=== PATIENT | female | born 1950 | race Caucasian/White ===

== ENCOUNTER → 2021-07-20 08:04 | Outpatient (BNVA) | payer MEDICARE, OTHER, SELFPAY | PROVIDERS: Visit Provider Nurse Practitioner Family | DX: M50.30 Other cervical disc degeneration, unspecified cervical region (principal); M54.12 Radiculopathy, cervical region; M54.81 Occipital neuralgia | CPT/HCPCS: 99202 ==

== ENCOUNTER 2021-08-08 08:42 | Outpatient (REF) | payer MEDICARE, OTHER, SELFPAY ==
--- NOTE | ~2021-08-08 | MR_ITS ---
EXAMINATION: MR CERVICAL SPINE WITHOUT CONTRAST CLINICAL INFORMATION: Radiculopathy, cervical region. COMPARISON: None available. TECHNIQUE: MRI of the cervical spine was performed using routine sequences without contrast. FINDINGS: The cervical vertebral bodies maintain normal heights. There is mild retrolisthesis of C5 on C6 and mild anterolisthesis of C7 on T1. Severe disc height loss is seen at C4-C5 and C5-C6 with additional mild to moderate disc height loss also demonstrated. The cervical cord signal appears normal. The imaged portions of the intracranial contents and extraspinal soft tissues appear normal. SPINAL LEVELS: C2-C3: No posterior disc abnormality. Severe left and moderate right facet arthropathy. No spinal canal or neural foraminal stenosis. C3-C4: No posterior disc abnormality. Uncovertebral hypertrophy with severe facet arthropathy resulting in moderate right neural foraminal stenosis. No spinal canal stenosis. C4-C5: Disc osteophyte complex with uncovertebral hypertrophy and moderate to severe facet arthropathy resulting in severe bilateral neural foraminal stenosis and mild spinal canal stenosis. C5-C6: Disc osteophyte complex with uncovertebral hypertrophy and mild facet arthropathy resulting in mild to moderate spinal canal stenosis and severe bilateral neural foraminal stenosis. C6-C7: Disc osteophyte complex with left more than right uncovertebral hypertrophy and mild facet arthropathy resulting in severe bilateral neural foraminal stenosis and mild spinal canal stenosis. C7-T1: No posterior disc abnormality. Moderate facet arthropathy. No spinal canal or neural foraminal stenosis. MR/MR cervical spine wo con IMPRESSION: Multilevel degenerative spondylosis resulting in varying degrees of spinal canal or neural foraminal stenosis. No cord signal abnormality. Spinal canal stenosis appears mild to moderate at C5-C6 and less advanced at other levels. Neural foraminal stenosis is moderate on the right at C3-C4 and severe bilaterally at C4-C5, C5-C6, and C6-C7.
== END 2021-08-08 08:43 | disposition home or self-care (01) ==
LOC: HO.MRI 08:42
PROVIDERS: PCP Internal Medicine; Visit Provider Nurse Practitioner Family
DX: M54.12 Radiculopathy, cervical region (principal); M50.30 Other cervical disc degeneration, unspecified cervical region
CPT/HCPCS: 72141

== ENCOUNTER → 2021-08-23 09:47 | Outpatient (BNVA) | payer MEDICARE, OTHER, SELFPAY | PROVIDERS: Visit Provider Nurse Practitioner Family | DX: M50.30 Other cervical disc degeneration, unspecified cervical region (principal); M54.81 Occipital neuralgia; M47.812 Spondylosis without myelopathy or radiculopathy, cervical region | CPT/HCPCS: 99212 ==

== ENCOUNTER → 2021-09-02 08:05 | Outpatient (BNVA) | payer MEDICARE, OTHER, SELFPAY | PROVIDERS: Visit Provider Internal Medicine | DX: M54.81 Occipital neuralgia (principal) | CPT/HCPCS: 64405; 64450; J3300 ==

== ENCOUNTER 2021-11-16 07:20 | Outpatient (REF) | payer MEDICARE, OTHER, SELFPAY ==
--- NOTE | ~2021-11-16 | FL_ITS ---
EXAMINATION: XR FLUOROSCOPY WITH IMAGES CLINICAL INFORMATION: Cervical disc degeneration COMPARISON: MRI of 08/08/2021 TECHNIQUE: Fluoroscopy performed by Dr. Gabriel Kaye. Fluoroscopy time: 0.2 minutes DAP: 0.137 Gycm2 Images: 2 FINDINGS: AP and lateral views of the cervical spine taken in the operating room with C-arm demonstrates 3 needles adjacent to lamina of C3, C4, and C5 on the right. FL/FL guidance in treatment room IMPRESSION: Intraoperative fluoroscopy for pain management procedure.
== END 2021-11-16 07:21 | disposition home or self-care (01) ==
LOC: HO.RADIR 07:20
PROVIDERS: Visit Provider Internal Medicine
DX: M47.812 Spondylosis without myelopathy or radiculopathy, cervical region (principal); M50.30 Other cervical disc degeneration, unspecified cervical region
CPT/HCPCS: 64490; 64491; 64492; J2795; Q9967

== ENCOUNTER → 2021-11-18 11:52 | Outpatient (BNVA) | payer MEDICARE, OTHER, SELFPAY | PROVIDERS: Visit Provider Nurse Practitioner Family | DX: M50.30 Other cervical disc degeneration, unspecified cervical region (principal); M54.81 Occipital neuralgia; M47.812 Spondylosis without myelopathy or radiculopathy, cervical region | CPT/HCPCS: Q3014 ==

== ENCOUNTER 2022-01-18 06:08 | Outpatient (REF) | payer MEDICARE, OTHER, SELFPAY ==
--- NOTE | ~2022-01-18 | FL_ITS ---
EXAMINATION: XR FLUOROSCOPY WITH IMAGES CLINICAL INFORMATION: Spondylosis without myelopathy or radiculopathy. Images: 3 Fluoroscopy performed by: Jesusita Fluoroscopy time: 0.2 minutes Cumulative Dose: 1.46 mGy DAP: 0.198 Gy-cm2 FINDINGS: There are needles positioned adjacent to the right C2, C3 and C4 right lateral lamina with soft tissue contrast opacification. The visualized vertebral heights, alignment and disc heights are normal. FL/FL guidance in treatment room IMPRESSION: Fluoroscopy guidance was provided to the referrer for pain management.
== END 2022-01-18 06:09 | disposition home or self-care (01) ==
LOC: HO.RADIR 06:08
PROVIDERS: Visit Provider Internal Medicine
DX: M47.812 Spondylosis without myelopathy or radiculopathy, cervical region (principal); M50.30 Other cervical disc degeneration, unspecified cervical region
CPT/HCPCS: 64490; 64491; 64492; Q9967

== ENCOUNTER → 2022-01-20 08:18 | Outpatient (BNVA) | payer MEDICARE, OTHER, SELFPAY | PROVIDERS: Visit Provider Internal Medicine | DX: M47.812 Spondylosis without myelopathy or radiculopathy, cervical region (principal) | CPT/HCPCS: Q3014 ==

== ENCOUNTER 2022-03-15 07:23 | Day surgery (SDC) | payer MEDICARE, OTHER, SELFPAY ==
--- NOTE | ~2022-03-15 | FL_ITS ---
EXAMINATION: XR FLUOROSCOPY WITH IMAGES CLINICAL INFORMATION: M47.812 - Spondylosis without myelopathy or radiculopathy, cervical region COMPARISON: MR cervical spine 08/08/2021 TECHNIQUE: Fluoroscopy performed by Dr. Gabriel Kaye. Fluoroscopy time: 0.6 minutes. Cumulative Dose: 2.78 mGy. DAP: 0.257 Gycm2. Images: 2. FINDINGS: There are spinal needles overlying the right lateral masses cervical spine approximately C3, C4, and C5. There are degenerative disc changes lower cervical spine with disc narrowing and anterior vertebral spurring C4-C7. FL/FL guidance in OR IMPRESSION: Fluoroscopy for pain management procedure.
[2022-03-15 07:34] VITALS: BMI 20.8
[2022-03-15 07:51] VITALS: BP 120/66; PULSE 81; RESP 16; TEMP 36.5; O2SAT 98
[2022-03-15 09:36] VITALS: PULSE 73; RESP 14; TEMP 36.9; O2SAT 96
--- NOTE | 2022-03-15 13:27 | MHC.SHP ---
Pre-Procedural Eval Section A Date of Service: 03/15/22 The patient is an INPATIENT: No Changes since office visit: Yes Patient answered all questions The History & Physical has been completed within 30 days and I have reviewed it.: No Section B Chief Complaint: Spondylosis without myelopathy or radiculopathy, Relevant Family History (Specify if Yes): No Relevant Social History: None Present Medications: see Short Stay Collaborative assessment Medical History: No relevant PMH History of Previous Operations: No relevant previous surgery Allergies: Allergies Allergy/AdvReac Type Severity Reaction Status Date / Time nickel Allergy Mild Hives Verified 01/18/22 07:21 Review of Systems Sugical H&P ROS: Negative: Constitution, Cardiovascular and Respiratory Exam Surgical H&P Exam: Normal: HEENT, Normal: Heart and Normal: Lungs Plan Diagnosis/Plan: Unchanged I have reviewed the history and physical and performed a pertinent physical examination on my patient. No changes have occurred unless specified.
--- NOTE | 2022-03-15 13:27 | PM.OP ---
Brief Operative Note Date of Service: 03/15/22 Pre-op diagnosis: Cervical spondylosis Post-op diagnosis: same Procedure: Radiofrequency ablation of the medial branches at C3, C4, C5 Surgeon: Gabriel Kaye MD Anesthesia: local Was an Security System Installer used for this Procedure?: No Estimated blood loss (mL): 1 Pathology: none sent Condition: stable Disposition: same day
--- NOTE | 2022-03-15 13:28 | W.PM.OPN ---
Operative Note Operative Note Date of Service: 03/15/22 Narrative: Radiofrequency lesioning cervical medial branch nerves, Right C3, C4 and C5 After obtaining written consent, pre-procedure blood pressure and heart rate were stable and recorded in the nursing record. The patient was placed in the prone position. The?cervical?area was prepped with chloraprep and draped in sterile fashion. The skin over the target for each medial branch nerve was anesthetized with 0.75% lidocaine. An 18 gauge radiofrequency cannula was advanced to each target site under fluoroscopic guidance. No paresthesias were elicited with needle placement and aspiration was negative for heme and CSF. Impedences were verified under 600 ohms. Sensory testing (50 Hz) and then motor testing (2 Hz) confirmed needle placement at each site within the appropriate voltage thresholds. Each site was injected with 1 ml 2% preservative-free lidocaine. Radiofrequency lesioning was performed for 90 seconds at 80 deg Celcius. Each site was then injected with 0.5% ropivacaine 0.5 mL. The needles were removed, skin cleansed and a sterile bandage was applied. The patient tolerated the procedure well and no complications were encountered. Following the procedure the patient's vital signs were stable. The patient was discharged home in good condition with post-procedural instructions. Time Out: Immediately prior to the procedure, the following was verbally confirmed that there is a signed consent form and that the correct patient, planned procedure, site and side are consistent with documentation and that necessary equipment and/or blood products are available prior to the start of the case. Complications: none EBL: <5 cc
== END 2022-03-15 10:20 | disposition home or self-care (01) ==
PROVIDERS: PCP Internal Medicine; Visit Provider Internal Medicine
PROC: (CPT 64633; principal; 2022-03-15 08:00)
DX: M47.812 Spondylosis without myelopathy or radiculopathy, cervical region (principal); Z86.012 Personal history of benign carcinoid tumor; Z79.899 Other long term (current) drug therapy; Z98.82 Breast implant status; Z91.09 Other allergy status, other than to drugs and biological substances
CPT/HCPCS: 64633; 64634; J2795; Q9965

== ENCOUNTER → 2022-04-10 08:49 | Outpatient (BNVA) | payer MEDICARE, OTHER, SELFPAY | PROVIDERS: PCP Internal Medicine; Visit Provider Internal Medicine | DX: M47.812 Spondylosis without myelopathy or radiculopathy, cervical region (principal) | CPT/HCPCS: 99212 ==

== ENCOUNTER 2023-04-22 10:44 | Emergency (ER) | payer MEDICARE, OTHER, SELFPAY ==
--- NOTE | ~2023-04-22 | XR_ITS ---
EXAMINATION: XR KNEE, RIGHT CLINICAL INFORMATION: Reason for Exam fall, pain COMPARISON: None TECHNIQUE: 4 views of the knee FINDINGS: Lucency and depression in the lateral tibial plateau may reflect sequela of age-indeterminate fracture, recommend correlation with point tenderness and if unclear clinical acuity a CT could be obtained for further evaluation. Mild osteoarthritis with osteophytes in the lateral tibiofemoral compartment. No joint effusion. Soft tissues are unremarkable that appreciable soft tissue swelling. XR/XR knee RT 3V IMPRESSION: * Lucency and depression in the lateral tibial plateau may reflect sequela of age-indeterminate fracture, recommend correlation with point tenderness and if unclear clinical acuity a CT could be obtained for further evaluation. No joint effusion or soft tissue swelling. * Mild osteoarthritis with osteophytes of the knee.
--- NOTE | ~2023-04-22 | CT_ITS ---
EXAMINATION: CT KNEE WITHOUT CONTRAST, RIGHT CLINICAL INFORMATION: Tibial plateau fracture. COMPARISON: 04/22/2023. TECHNIQUE: Multidetector volumetric imaging was obtained through the right knee without contrast. Multiplanar reformatted images in coronal and sagittal orientations were submitted. This CT examination was performed using dose optimization techniques as appropriate, variously including the following: *Automated exposure control *Adjustment of mA and/or kV according to patient size (this includes techniques or standardized protocols for targeted exams where dose is matched to indication/reason for exam; i.e. extremities or head) *Use of iterative reconstruction technique DLP: 207 mGy-cm FINDINGS: There is an oblique sagittal fracture through the lateral tibial plateau articular surface with minimal lateral displacement of the lateral fracture fragment by 1-2 mm. Articular cortical step off measures 1 mm. No significant articular cortical depression. Medial tibial plateau and tibial spines are intact. Note fractures of the distal femur or patella. Proximal fibula is intact. Mild joint space narrowing is present at the medial and lateral compartments. Small marginal osteophytes in all 3 compartments. Large lipohemarthrosis. No Braun's cyst. Quadriceps and patellar tendons are intact. Musculature is unremarkable. CT/CT knee RT wo IV con IMPRESSION: Minimally displaced, acute, sagittal split fracture of the lateral tibial plateau (Schatzker type I). Mild tricompartmental osteoarthritis. Lipohemarthrosis.
[2023-04-22 10:51] VITALS: BP 130/65; BP 137/42; PULSE 58; PULSE 62; RESP 16; TEMP 36.8; O2SAT 100; O2SAT 95; BMI 23.0
--- NOTE | 2023-04-22 11:00 | ED.FALL ---
HPI - Fall General Chief Complaint: Fall Stated Complaint: FALL R KNEE AND LOWER LEG PAIN Time Seen by Provider: 04/22/23 10:48 Source: patient and EMS Mode of arrival: EMS Limitations: no limitations History of Present Illness HPI Narrative: 72-year-old female with a history of high cholesterol presents to the ER after a fall. Patient reports that she was at the dog park with her dog when her dog got very excited and ran into her causing her to fall. Patient reports she landed on the right knee. She did not hit her head or lose consciousness. She is not on AC therapy. Patient reports after she fell hitting her knee she had quite a bit of pain and felt dizzy and nauseous. She did receive 4 mg of Zofran prior to arrival from EMS. She tells me that her dizziness and nausea is resolved. She is still having pain in her right knee. She denies headache, neck pain, back pain, chest pain, abdominal pain, vision changes, vomiting. Related Data Home Medications Medication Instructions Recorded Confirmed calcium carbonate 600 mg-vitamin cap PO 07/20/21 04/10/22 D3 12.5 mcg (500 unit) capsule (Calcium 600 with Vitamin D3) guselkumab 100 mg/mL subcutaneous mg subcut 07/20/21 04/10/22 syringe (Tremfya) ibuprofen 800 mg tablet 800 mg PO Q8H PRN pain 07/20/21 04/10/22 Previous Rx's Medication Instructions Recorded tizanidine 2 mg tablet 1 mg (1/2 x 2 mg) PO BEDTIME PRN 04/10/22 muscle spasm #30 tabs ibuprofen 600 mg tablet 600 mg PO Q8H PRN pain #20 tabs 04/22/23 oxycodone 5 mg tablet 5 mg PO Q8H PRN pain #8 tabs 04/22/23 Allergies Allergy/AdvReac Type Severity Reaction Status Date / Time nickel Allergy Mild Hives Verified 04/22/23 11:01 Review of Systems Review of Systems: Yes all other systems are reviewed and are negative Constitutional: Constitutional: Reports no additional constitutional complaints, Denies body ache(s), Denies chills, Denies fever(s), Denies headache(s) and Denies weakness Eyes: Eyes: Reports no additional eye complaints and Denies change in vision ENT: Reports system reviewed and no additional complaints, except as documented, Denies dizziness, Denies headache(s), Denies nasal congestion, Denies nasal discharge and Denies neck pain Cardiovascular: Cardiovascular: Reports no additional cardiovascular complaints, Denies chest pain, Denies leg edema and Denies dyspnea Respiratory: Respiratory: Reports no additional respiratory complaints, Denies cough and Denies dyspnea Gastrointestinal: Gastrointestinal: Reports no additional gastrointestinal complaints, Denies abdominal pain, Denies diarrhea, Denies nausea and Denies vomiting Genitourinary: Genitourinary: Reports no additional female genitourinary complaints and Denies urinary incontinence Musculoskeletal: Musculoskeletal: Reports no additional musculoskeletal complaints, Denies back pain, Reports arthralgias, Denies joint swelling, Denies limited range of motion, Denies neck pain, Denies numbness and Denies tingling Integumentary/Breasts: Skin/Breast: Reports system reviewed and no additional complaints, except as docu and Denies rash Neurologic: Reports system reviewed and no additional complaints, except as documented, Denies Abnormal speech present, Denies dizziness, Denies headache(s), Denies numbness, Denies tingling and Denies weakness PMFSH Past Medical History Attestation statement: The following information was validated with the patient. Source: old records reviewed and nursing notes reviewed Medical History Benign carcinoid tumor of sigmoid colon Surgical History H/O bilateral breast implants Social History Social History Patient Tobacco Use Status: Never used Tobacco Smoked in Last 30 Days: No Use of substances other than those prescribed or required for medical reasons: No Any prior treatment program specific to substance use: No Advance Directives: Yes Advance Directives Information Provided: Yes Advance Directives on File: No Physical Exam Vital Signs: Vital Signs: Last Vital Signs Temp 98.2 F 04/22/23 10:51 Pulse 78 04/22/23 13:08 Resp 18 04/22/23 13:08 BP 139/58 L 04/22/23 13:08 Pulse Ox 98 04/22/23 13:08 O2 Del Method Room Air 04/22/23 13:08 BMI result Body Mass Index 23.0 Const: General: cooperative, healthy appearing, comfortable and no acute distress Orientation/consciousness: patient oriented x3 Limitations: no limitations HEENT: Head: Yes normal to inspection, No Bryan's sign and No raccoon eyes Ears: hearing grossly normal bilaterally and TM's normal bilaterally General nose exam: Normal external nose present Face and sinus: Yes normal facial exam Mouth: Normal oral and palatal mucosa present Throat: Yes posterior oropharynx normal Eyes: General: appearance normal, both eyes and all related structures Pupils: Equal, round and reactive pupils present Neck: Other: There is no cervical midline tenderness on exam. Neck: Yes normal visual inspection, Yes full ROM and Yes no lymphadenopathy Chest: Chest palpation & inspection: normal inspection of the chest Resp: Effort & Inspection: normal respiratory effort Auscultation: clear to auscultation bilaterally Cardio: Rate: regular rate Rhythm: regular rhythm Peripheral pulses: Peripheral pulses 2+ throughout GI: Inspection: Yes normal to inspection Palpation (GI): Soft to palpation and nontender Auscultation: normal bowel sounds Back/Spine/Pelvis: Thoracic/Lumbar Spine: thoracic and lumbar spine normal to inspection Skin: General skin exam: no rashes or lesions noted Neuro: General: patient oriented x3, moves all extremities, no focal motor deficits, normal sensation to monofilament and Unable to assess gait Cranial nerves: Yes CN's II-XII intact bilaterally, Yes Equal, round and reactive pupils present, Yes Bilaterally intact EOM present, Yes Nystagmus not present, Yes Normal facial strength present and Yes Midline tongue present Cognition (Neuro): normal cognition Speech: No Abnormal speech present Gait exam (Neuro): Unable to assess gait Motor exam (neuro): 5/5 motor strength present throughout Sensory Exam: Normal double simultaneous stimulation for sensation Extrem: Other: Knee is held in flexion. There is pain with extension of the knee. There is tenderness on palpation over the anterior knee and proximal tibia. There is no swelling or deformity noted. There are normal DP and PT pulses distally. Normal sensation distally. Normal active and passive range of motion of the distal joint General: Yes normal to inspection Course Course Course Narrative: Reviewed findings of the CT scan with the patient and her family. Patient was placed in a knee immobilizer and given crutches with teaching by nursing staff. I will discharge her home with recommendations to follow-up with orthopedics. Reviewed worrisome signs and symptoms of when to return to the emergency room. Comfortable plan for discharge home. Medications Administered Discontinued Medications Generic Name Dose Route Start Last Admin Trade Name Morena PRN Reason Stop Dose Admin Acetaminophen 975 mg 04/22/23 10:59 04/22/23 11:07 Acetaminophen 325 Mg Tablet PO 04/22/23 11:00 975 mg ONCE ONE Administration Ketorolac Tromethamine 15 mg 04/22/23 12:42 04/22/23 13:01 Ketorolac Tromethamine 15 Mg/Ml Vial IVPUSH 04/22/23 12:43 15 mg ONCE ONE Administration Procedures Orthopedic Splinting/Casting Injury #1: Side: right Lower Extremity Injury Location: knee Lower Extremity Immobilizer: knee immobilizer Other Orthopedic Equipment: crutches Medical Decision Making Medical Decision Making MDM Narrative: 72-year-old female with a history of high cholesterol presents to the ER after a fall.? Patient reports that she was at the dog park with her dog when her dog got very excited and ran into her causing her to fall.? Patient reports she landed on the right knee.? She did not hit her head or lose consciousness.? She is not on AC therapy.? Patient reports after she fell hitting her knee she had quite a bit of pain and felt dizzy and nauseous.? She did receive 4 mg of Zofran prior to arrival from EMS.? She tells me that her dizziness and nausea is resolved.? She is still having pain in her right knee.? She denies headache, neck pain, back pain, chest pain, abdominal pain, vision changes, vomiting. Knee is held in flexion.? There is pain with extension of the knee.? There is tenderness on palpation over the anterior knee and proximal tibia.? There is no swelling or deformity noted.? There are normal DP and PT pulses distally.? Normal sensation distally.? Normal active and passive range of motion of the distal joint. Normal neuro exam. Patient denies any head strike or loss of consciousness. I do not feel that she needs the CT of her head or cervical spine. We will check x-rays of the right knee and provide analgesia Differential Diagnosis Differential Diagnoses: The differential diagnosis associated with the presentation includes Fracture, contusion, sprain, strain, dislocation Low concern for vascular injury Admission/Observation Consideration of admission/observation: Escalation of care including admission/observation considered See course of care Consult Healthcare Provider Management of the patient was discussed with: Insulation Cutter And Former X-ray of the right knee shows a tibial plateau fracture. We discussed the case with Orthopedics Renetta SANCHEZ. She is requesting that the patient have a CT scan while she is in the emergency department of her knee. I did review the CT findings with the orthopedic department. They recommended a knee mobilizer and not weight-bearing with follow-up outpatient Independent Interpretation I performed an independent interpretation of an: Plain X-Ray Interpretation: I independently reviewed the x-ray and CT knee and agree with Radiology report Radiology Impression Discussion of test interpretation with radiology: I have reviewed the radiologist's reading. Radiologist Impression: [address] [address] XRay Report Signed Patient: Sarah Geller MR#: [id number] : 1950 Acct:[id number] Age/Sex: 72 / F ADM Date: 04/22/23 Loc: .ED Attending Dr: Ordering Physician: Joan Miles NP Date of Service: 04/22/23 Procedure(s): XR knee RT 3V Accession Number(s): [id number] cc: Zo Isabel MD; Joan Miles NP~ EXAMINATION: XR KNEE, RIGHT CLINICAL INFORMATION: Reason for Exam fall, pain COMPARISON: None TECHNIQUE: 4 views of the knee FINDINGS: Lucency and depression in the lateral tibial plateau may reflect sequela of age-indeterminate fracture, recommend correlation with point tenderness and if unclear clinical acuity a CT could be obtained for further evaluation. Mild osteoarthritis with osteophytes in the lateral tibiofemoral compartment. No joint effusion. Soft tissues are unremarkable that appreciable soft tissue swelling. XR/XR knee RT 3V IMPRESSION: * Lucency and depression in the lateral tibial plateau may reflect sequela of age-indeterminate fracture, recommend correlation with point tenderness and if unclear clinical acuity a CT could be obtained for further evaluation. No joint effusion or soft tissue swelling. * Mild osteoarthritis with osteophytes of the knee. [address] [address] [address] Scan Report Signed Patient: Sarah Geller MR#: [id number] : 1950 Acct:[id number] Age/Sex: 72 / F ADM Date: 04/22/23 Loc: HO.ED Attending Dr: Ordering Physician: Joan Miles NP Date of Service: 04/22/23 Procedure(s): CT knee RT wo IV con Accession Number(s): [id number] cc: Zo Isbael MD; Joan Miles NP~ EXAMINATION: CT KNEE WITHOUT CONTRAST, RIGHT CLINICAL INFORMATION: Tibial plateau fracture. COMPARISON: 04/22/2023. TECHNIQUE: Multidetector volumetric imaging was obtained through the right knee without contrast. Multiplanar reformatted images in coronal and sagittal orientations were submitted. This CT examination was performed using dose optimization techniques as appropriate, variously including the following: *Automated exposure control *Adjustment of mA and/or kV according to patient size (this includes techniques or standardized protocols for targeted exams where dose is matched to indication/reason for exam; i.e. extremities or head) *Use of iterative reconstruction technique DLP: 207 mGy-cm FINDINGS: There is an oblique sagittal fracture through the lateral tibial plateau articular surface with minimal lateral displacement of the lateral fracture fragment by 1-2 mm. Articular cortical step off measures 1 mm. No significant articular cortical depression. Medial tibial plateau and tibial spines are intact. Note fractures of the distal femur or patella. Proximal fibula is intact. Mild joint space narrowing is present at the medial and lateral compartments. Small marginal osteophytes in all 3 compartments. Large lipohemarthrosis. No Braun's cyst. Quadriceps and patellar tendons are intact. Musculature is unremarkable. CT/CT knee RT wo IV con IMPRESSION: Minimally displaced, acute, sagittal split fracture of the lateral tibial plateau (Schatzker type I). Mild tricompartmental osteoarthritis. Lipohemarthrosis. Independent Historian Clinical information obtained from an independent historian. History obtained from or confirmed by: EMS Tests considered The following testing was considered but not selected: Lower concern for vascular injury requiring advanced imaging Prescription Management I considered prescription management with: Pain Medication Discharge Plan Discharge Clinical Impression: Fracture, tibial plateau Patient Disposition: Home, Self-Care Instructions: Leg Fracture (ED) Additional Instructions: Please use the knee immobilizer with movement. You need to be strict nonweightbearing with crutches. Ice the knee, elevate the knee Please call orthopedics to follow-up Prescriptions: New ibuprofen 600 mg tablet 600 mg PO Q8H PRN (Reason: pain) Qty: 20 0RF oxycodone 5 mg tablet 5 mg PO Q8H PRN (Reason: pain) Qty: 8 0RF Rx Instructions: Partial Fill upon patient request. No Action Tremfya 100 mg/mL syringe subcut ibuprofen 800 mg tablet 800 mg PO Q8H PRN (Reason: pain) calcium carbonate-vitamin D3 [Calcium 600 with Vitamin D3] 600 mg-12.5 mcg (500 unit) capsule PO tizanidine 2 mg tablet 1 mg PO BEDTIME PRN (Reason: muscle spasm) Qty: 30 0RF [place]: [facility] [place] [facility] [place]Provider Group] - 5 days
[2023-04-22] MEDS: Acetaminophen 325 MG TABLET 975 MG PO (11:07)
[2023-04-22 11:08] VITALS: BP 125/65; BP 130/65; PULSE 58; PULSE 68; RESP 16; O2SAT 100; O2SAT 98
--- NOTE | 2023-04-22 11:22 | PC.NURSE ---
Pt states she was out walking dog at [employer] when dog ran into me at full speed , causing pt to sustain fall. Pt fell on her right knee in which she felt an immediate crack upon landing. Pt does confirm she hit her head and is not on any anticoagulants. Pt states she felt dizzy and nauseated after hitting her head. Pt denies LOC. Pt is A+0 x's 3 with no neuro deficits. Provider assessed at bedside and placed orders for imaging and pain relief. Care ongoing.
--- NOTE | 2023-04-22 11:29 | PC.NURSE ---
Pt transported to Xray
--- NOTE | 2023-04-22 11:35 | PC.NURSE ---
Pt returned from xray
[2023-04-22] MEDS: Ketorolac Tromethamine 15 MG/ML VIAL IVPUSH (13:01)
[2023-04-22 13:08] VITALS: BP 139/58; PULSE 78; RESP 18; O2SAT 98
--- NOTE | 2023-04-22 13:33 | PC.NURSE ---
returned from ct
--- NOTE | 2023-04-22 14:18 | PC.NURSE ---
Assisted pt w/bedpan; pt nonambulatory at this time- secondary to fracture in RLE.
== END 2023-04-22 15:08 | disposition home or self-care (01) ==
PROVIDERS: Emergency Provider Emergency Medicine Emergency Medical Services; PCP Internal Medicine
DX: S82.141A Displaced bicondylar fracture of right tibia, initial encounter for closed fracture (principal); W01.0XXA Fall on same level from slipping, tripping and stumbling without subsequent striking against object, initial encounter; Y93.89 Activity, other specified; Y92.830 Public park as the place of occurrence of the external cause; Y99.9 Unspecified external cause status
CPT/HCPCS: 73562; 73700; 96374; 99284; J1885

== ENCOUNTER 2023-04-23 11:15 | Outpatient (AMB) | payer MEDICARE, OTHER, SELFPAY ==
--- NOTE | 2023-04-23 11:22 | MHC.OFFVIS ---
Intake Vital Signs 04/23/23 11:28 Height 5 ft 2 in Weight 125 lb BMI 22.9 Intake Visit Reasons: fc- Rt knee tib plateau fx Intake Note: Sarah garcía 72 year old female presents today for an ER follow up of right knee injury, DOI 04/22/23. Patient reports while she was at the dog park, her dog ran into her at full speed causing her to fall onto her right knee. Presented to [facility] [place] [place] ED that same day where xrays were taken and placed in a knee immobilizer. Currently her pain comes with any type of movement in her right leg, at rest no pain. At night she feels numbness in her robbins area. Finds relief with Advil. Allergies nickel Allergy (Mild, Verified 04/23/23 11:31) Hives HPI fc- Rt knee tib plateau fx HPI Details 72-year-old female who presents to the office today for an ER follow-up of right knee injury s/p fall on her right knee when her dog ran into her at full speed at the [employer], 04/22/23. She was seen at ED the same day where x-rays were performed and she was placed in a knee immobilizer. She currently states she has pain in her right knee which comes with any movement of her leg. She also c/o numbness in her robbins area at night. She denies pain while at rest. She finds relief with Advil. [facility] Medical History Benign carcinoid tumor of sigmoid colon Surgical History H/O bilateral breast implants Social History Patient Tobacco Use Status: Never used Tobacco Current occupational status: unemployed Review of Systems Const All systems reviewed & are unremarkable except as noted in HPI and below Physical Exam Vital Signs: BMI result Body Mass Index 22.9 Const General: cooperative and no acute distress Orientation/consciousness: patient oriented x3 Resp Effort & Inspection: normal respiratory effort and able to speak in complete sentences Cardio Peripheral pulses: Peripheral pulses 2+ throughout Neuro General: patient oriented x3 Extrem Other: Right knee: Normal to inspection. She has a trace joint effusion. ROM is 0-90 degrees. Calf supple, nontender. Tenderness over the lateral tibial plateau. Results Reviewed Results Reviewed: CT scan IMPRESSION: Minimally displaced, acute, sagittal split fracture of the lateral tibial plateau (Schatzker type I). Mild tricompartmental osteoarthritis. Lipohemarthrosis. Assessment & Plan Assessment & Plan (1) Tibial plateau fracture, left: Code(s): S82.142A - Displaced bicondylar fracture of left tibia, initial encounter for closed fracture Qualifiers: Encounter type: initial encounter Fracture type: closed Qualified Code(s): S82.142A - Displaced bicondylar fracture of left tibia, initial encounter for closed fracture Plan She was placed in a hinge knee brace. She can work on ROM but she should remain non weight bearing. I did show her some ROM and quad exercises techniques while in the office. I did explain that healing usually takes around 6-8 weeks on x-rays and I will see her back at that time with new x-rays. Medications: New ibuprofen 800 mg PO Q8H 30 days PRN 90 tabs 3RF pain S52.209D - Unspecified fracture of shaft of unspecified ulna, subsequent encounter for closed fracture with routine healing Refilled ibuprofen 600 mg PO Q8H PRN 20 tabs 0RF pain Patient Instructions: Scribed for John Cleary PA-C, by Robert Quinones emergency medical service coordinator, on 04/23/2023 at 11:15 AM EST. IJohn PA-C, have personally reviewed and agree with the information entered by the scribe. Coding Level of Care Code New Pt Level 3 (73064) Diagnoses Closed fracture of left tibial plateau, initial encounter S82.142A Encounter type: initial encounter Fracture type: closed
[2023-04-23 11:28] VITALS: BMI 22.9
== END 2023-04-23 12:00 | disposition home or self-care (01) ==
PROVIDERS: PCP Internal Medicine; Visit Provider Physician Assistant
DX: S82.142A Displaced bicondylar fracture of left tibia, initial encounter for closed fracture (principal); W19.XXXA Unspecified fall, initial encounter
CPT/HCPCS: 99203

== ENCOUNTER → 2023-04-23 11:15 | Outpatient (BNVA) | payer MEDICARE, OTHER, SELFPAY | PROVIDERS: PCP Internal Medicine; Visit Provider Physician Assistant | DX: S82.141A Displaced bicondylar fracture of right tibia, initial encounter for closed fracture (principal) | CPT/HCPCS: 99202 ==

== ENCOUNTER 2023-05-30 07:42 | Outpatient (AMB) | payer MEDICARE, OTHER, SELFPAY ==
--- NOTE | 2023-05-30 08:03 | A.OFFVIS_ITS ---
Intake Intake Visit Reasons: OV-Rt tibial plateau fx w xrays Intake Note: Sarah garcía 72 year old female presents today for an ER follow up of right knee injury, DOI 04/22/23. Patient reports no pain at the moment, however she is haivng some pain on her robbins. Allergies nickel Allergy (Mild, Verified 05/30/23 08:06) Hives HPI OV-Rt tibial plateau fx w xrays HPI Details 72-year-old female who returns to the [facility] today for a follow-up of right tibial plateau fracture, 04/22/23. She states she has no pain in her knee but she does c/o mild pain in her robbins region. She continues to remain NWB with cruthces. She is doing well overall and has no concerns. [facility] Medical History Benign carcinoid tumor of sigmoid colon Surgical History H/O bilateral breast implants Social History Patient Tobacco Use Status: Never used Tobacco Current occupational status: unemployed Review of Systems Const All systems reviewed & are unremarkable except as noted in HPI and below Physical Exam Const General: cooperative and no acute distress Orientation/consciousness: patient oriented x3 Resp Effort & Inspection: normal respiratory effort and able to speak in complete sentences Cardio Peripheral pulses: Peripheral pulses 2+ throughout Neuro General: patient oriented x3 Extrem Other: Right knee: Normal to inspection. No joint effusion. ROM is 0-90 degrees. Calf supple, nontender. No tenderness over the lateral tibial plateau. Results Reviewed Results Reviewed: Xrays were obtained in the office today and personally reviewed by me of the left knee which show stable fracture pattern Assessment & Plan Assessment & Plan (1) Tibial plateau fracture, left: Code(s): S82.142A - Displaced bicondylar fracture of left tibia, initial encounter for closed fracture Qualifiers: Encounter type: subsequent encounter Fracture type: closed Fracture healing: with routine healing Qualified Code(s): S82.142D - Displaced bicondylar fracture of left tibia, subsequent encounter for closed fracture with routine healing Plan She will progress to partial weight bearing with crutches. She will begin physical therapy for partial gait training, ROM, and quad, hip and hamstring strengthening. I would like to see her back in 6 weeks with new x-rays, sooner if needed. Orders: Orders XR knee RT 2V Today M25.569 - Pain in unspecified knee PT Evaluation and Treatment Today S82.142A - Displaced bicondylar fracture of left tibia, initial encounter for closed fracture Patient Instructions: Scribed for John Cleary PA-C, by Robert Quinones medical malpractice paralegal, on 05/30/2023 at 8:00 AM EST. I, John Cleary PA-C, have personally reviewed and agree with the information entered by the scribe. Coding Level of Care Code Global (20573) Diagnoses Closed fracture of left tibial plateau with routine healing, subsequent encounter S82.142D Encounter type: subsequent encounter Fracture type: closed Fracture healing: with routine healing
== END 2023-05-30 08:34 | disposition home or self-care (01) ==
PROVIDERS: PCP Internal Medicine; Visit Provider Physician Assistant
DX: S82.142D Displaced bicondylar fracture of left tibia, subsequent encounter for closed fracture with routine healing (principal)
CPT/HCPCS: 99213

== ENCOUNTER 2023-05-30 09:36 | Outpatient (REF) | payer MEDICARE, OTHER, SELFPAY | END 2023-05-30 09:37 | disposition home or self-care (01) | LOC: HO.HOSX 09:36 | PROVIDERS: Visit Provider Physician Assistant | DX: M25.561 Pain in right knee (principal); M85.80 Other specified disorders of bone density and structure, unspecified site; S82.142D Displaced bicondylar fracture of left tibia, subsequent encounter for closed fracture with routine healing; X58.XXXD Exposure to other specified factors, subsequent encounter | CPT/HCPCS: 73560; 99212 ==

== ENCOUNTER 2023-07-09 08:21 | Outpatient (AMB) | payer MEDICARE, OTHER, SELFPAY ==
[2023-07-09 08:36] VITALS: BMI 22.9
--- NOTE | 2023-07-09 08:36 | A.OFFVIS_ITS ---
Intake Vital Signs 07/09/23 08:36 Height 5 ft 2 in Weight 125 lb BMI 22.9 Intake Visit Reasons: ov-Rt tibial plateau fx w xrays Intake Note: Sarah 72 yr old female presents to the office today for a follow-up of right tibial plateau fracture, 04/22/23. States she is working with [employer] and improving. Also mentioned she will be having a blood transfusion and wants to make sure this wont affect her knee recovry. Allergies nickel Allergy (Mild, Verified 07/09/23 08:38) Hives HPI ov-Rt tibial plateau fx w xrays HPI Details 72-year-old female who returns to the [facility] today for a follow-up of right tibial plateau fracture, 04/22/23. She states she has tightness as well as stiffness in her knee with the use of her brace. She is working on physical therapy with benefits. She reports she is about to get scheduled for a blood transfusion and would like to know if this would affect her knee recovery. She has no concerns today. She works as a behavioral therapist. [facility] Medical History Benign carcinoid tumor of sigmoid colon Surgical History H/O bilateral breast implants Social History Patient Tobacco Use Status: Never used Tobacco Current occupational status: unemployed Review of Systems Const All systems reviewed & are unremarkable except as noted in HPI and below Physical Exam Vital Signs: BMI result Body Mass Index 22.9 Const General: cooperative and no acute distress Orientation/consciousness: patient oriented x3 Resp Effort & Inspection: normal respiratory effort and able to speak in complete sentences Cardio Peripheral pulses: Peripheral pulses 2+ throughout Neuro General: patient oriented x3 Extrem Other: Right knee: Normal to inspection. No joint effusion. ROM is 0-90 degrees. Calf supple, nontender. No tenderness over the lateral tibial plateau. Results Reviewed Results Reviewed: Xrays were obtained in the office today and personally reviewed by me of the left knee which show stable fracture pattern Assessment & Plan Assessment & Plan (1) Tibial plateau fracture, left: Code(s): S82.142A - Displaced bicondylar fracture of left tibia, initial encounter for closed fracture Qualifiers: Encounter type: subsequent encounter Fracture healing: with routine healing Fracture type: closed Qualified Code(s): S82.142D - Displaced bicondylar fracture of left tibia, subsequent encounter for closed fracture with routine healing Plan She will continue with physical therapy to work on quad strengthening, gait tu lamont and begin increasing activity discontinuing brace at home and wear it when she is out and about if there is any chance of reinjury. I would expect she will take another 5 weeks to potentially reach full recovery with no need of brace. She also has a goldendoodle dog which is with her daughter and she would like to know when she could take the dog back without reinjuring herself. I recommend to wait for a few weeks until she is done with physical therapy and restores good quad stability to lower her chances of reinjury when she is walking her dog and the dog pulls the leash. She is content with this plan and she will see me back in 6 weeks with new x-rays, sooner if needed. Orders: Orders XR knee RT 2V Today M25.569 - Pain in unspecified knee Patient Instructions: Scribed for John Cleary PA-C, by Robert Quinones medical and scientific illustrator, on 07/09/2023 at 8:30 AM EST. IJohn PA-C, have personally reviewed and agree with the information entered by the scribe. Coding Level of Care Code Global (02138) Diagnoses Closed fracture of left tibial plateau with routine healing, subsequent encounter S82.142D Encounter type: subsequent encounter Fracture healing: with routine healing Fracture type: closed
== END 2023-07-09 09:05 | disposition home or self-care (01) ==
PROVIDERS: PCP Internal Medicine; Visit Provider Physician Assistant
DX: S82.142D Displaced bicondylar fracture of left tibia, subsequent encounter for closed fracture with routine healing (principal)
CPT/HCPCS: 99213

== ENCOUNTER 2023-07-09 09:12 | Outpatient (REF) | payer MEDICARE, OTHER, SELFPAY ==
--- NOTE | ~2023-07-09 | XR_ITS ---
EXAMINATION: XR KNEE, RIGHT CLINICAL INFORMATION: Pain in unspecified knee. COMPARISON: CT knee 04/22/2023. Radiographs of 04/22/2023, 07/09/2023. TECHNIQUE: Two views of the right knee. FINDINGS: Bones are diffusely demineralized. Mild medial and lateral joint space narrowing. No significant joint effusion. Tiny tricompartmental osteophytes. Previously identified minimally displaced fracture of the lateral tibial plateau is less conspicuous compared with exams of 04/22/2023, suggesting some interval healing. XR/XR knee RT 2V IMPRESSION: Previously identified minimally displaced fracture of the lateral tibial plateau is less conspicuous compared with exams of 04/22/2023, suggesting some interval healing.
== END 2023-07-09 09:13 | disposition home or self-care (01) ==
LOC: HO.HOSX 09:12
PROVIDERS: Visit Provider Physician Assistant
DX: S82.142D Displaced bicondylar fracture of left tibia, subsequent encounter for closed fracture with routine healing (principal); M25.562 Pain in left knee; X58.XXXD Exposure to other specified factors, subsequent encounter
CPT/HCPCS: 73560; 99212

== ENCOUNTER 2023-08-07 08:00 | Outpatient (RCR) | payer MEDICARE, OTHER, SELFPAY ==
--- NOTE | 2023-06-05 12:37 | MHC.PT.EP ---
[facility] [place] Office [place] Office [place] Office [address] Toshia Beth [address] [phone] F: [phone] F: [phone] F: [phone] F: [phone] Physical Therapy Plan of Care Date of Evaluation: 06/05/23 Date of Surgery: Diagnosis: This is a 72 yo female presenting to skilled PT with a script for fracture of L tibial plateau. Assessment: This is a 72 yo female presenting to skilled PT with a script for fracture of L tibial plateau. Patient reports that she was at the dog park when her dog got very excited and ran into her leg causing her to fall. Patient reports she landed on the right knee. She did not hit her head or lose consciousness. DOI was 04/22/23. She went to the ER following the incident and was referred to [facility] ortho. She has been NWBing for 6wks (just started PWBing on 05/30/23). Last ortho note states: She will progress to partial weight bearing with crutches. She will begin physical therapy for partial gait training, ROM, and quad, hip and hamstring strengthening. I would like to see her back in 6 weeks with new x-rays, sooner if needed. She is here today with no pain, in a don ceci hinge brace and toe down weightbearing with B axillary crutches. Assessment reveals minimal pain but more stiffness and fear. Patient demos decreased LE ROM (primarily limited with extension), strength of LE, TTP at lower leg and impaired posture with forward head and rounded shoulders associated with decreased balance and gait. Based on functional limitations, impaired QOL and pain tolerance patient is a good candidate for skilled PT 2x/wk for 5wks. Frequency and Duration: The patient will be seen 2x/wk for 5wks Short Term Goals: Progress to WBAT to use of cane or single crutch Patient will improve knee AROM WFL Patient will demo good understanding and performance of quad set in multiple different planes without cues from PT Patient will be I in HEP Wardrobe Image Consultant Goals: Patient will report 75% improvement in balance and strength of LLE as evidenced by reports no of falls or buckling in LE Patient will improve LEFs by 10 points Patient will demo WFL AROM of hip, knee and ankle Patient will demo proper squat and lift techniques without increase in pain Demo good gait pattern without cues from PT or use of compensatory movements Treatment Plan: Modalities to reduce pain, spasms and effusion. Manual therapy to restore motion and function. Therapeutic exercise to improve strength and flexibility. Neuromuscular re-education for posture and balance. Therapeutic activities to return to functional activities of daily living. Electronically signed by: Sera Anderson PT Please sign and return to therapist. Thank you for your referral.
--- NOTE | 2023-09-03 08:40 | MHC.PT.DC ---
[facility] [place] Office [place] Office [place] Office [address] Toshia Beth [address] [phone] F: [phone] F: [phone] F: [phone] F: [phone] Physical Therapy Discharge Report Diagnosis: This is a 72 yo female presenting to skilled PT with a script for fracture of L tibial plateau. Date of Surgery: Date of Evaluation: 06/05/23 Date of Discharge: 09/03/23 Treatments to Date: 10 Cancellations to Date: 0 No Shows to Date: 0 Discharge Status: Achieved Goals Improved Function Independent with HEP Discharge Summary: 08/07: Patient has returned to baseline, demos normal ROM and strength as well as gait pattern and balance. She is I with her HEP and appropriate for DC at this time. Chart DC'd after 30 days. Sees ortho again on 08/19 and educated her that if anything changes to call our office. Electronically signed by: Sera Anderson PT Please sign and return to therapist. Thank you for your referral.
== END 2023-09-03 08:40 | disposition home or self-care (01) ==
LOC: HO.PTCHIC 08:00
PROVIDERS: PCP Internal Medicine; Visit Provider Physician Assistant
DX: S82.142D Displaced bicondylar fracture of left tibia, subsequent encounter for closed fracture with routine healing (principal)
CPT/HCPCS: 97110; 97112; 97116; 97162; 97530

== ENCOUNTER 2023-08-20 09:32 | Outpatient (REF) | payer MEDICARE, OTHER, SELFPAY ==
--- NOTE | ~2023-08-20 | XR_ITS ---
EXAMINATION: XR KNEE, RIGHT CLINICAL INFORMATION: Pain in unspecified knee. COMPARISON: 07/10/2023, 04/22/2023 and 07/09/[address] scan 04/22/2023. TECHNIQUE: AP and lateral views of the right knee. FINDINGS: The bones are diffusely demineralized. Mild medial and lateral compartment space narrowing. Tiny tricompartmental osteophytes. Previously identified minimally displaced fracture of the lateral tibial plateau remains less conspicuous compared with exams of 04/22/2023. No significant joint effusion. There is possible subtle cortical disruption along the posterior distal aspect of the femur on the lateral view, possibly related to slight differences in projection. This was not previously appreciated and direct correlation with clinical exam recommended to determine further management. XR/XR knee RT 2V IMPRESSION: Previously identified minimally displaced fracture of the lateral tibial plateau remains less conspicuous compared with exams of 04/22/2023. There is possible subtle cortical disruption along the posterior distal aspect of the femur on the lateral view, possibly related to slight differences in projection. This was not previously appreciated and direct correlation with clinical exam recommended to determine further management.
== END 2023-08-20 09:33 | disposition home or self-care (01) ==
LOC: HO.HOSX 09:32
PROVIDERS: Visit Provider Physician Assistant
DX: M25.561 Pain in right knee (principal); S82.141D Displaced bicondylar fracture of right tibia, subsequent encounter for closed fracture with routine healing; X58.XXXD Exposure to other specified factors, subsequent encounter
CPT/HCPCS: 73560; 99212

== ENCOUNTER 2023-08-20 12:37 | Outpatient (AMB) | payer MEDICARE, OTHER, SELFPAY ==
--- NOTE | 2023-08-20 12:56 | A.OFFVIS_ITS ---
Intake Vital Signs 08/20/23 12:59 Height 5 ft 2 in Weight 125 lb BMI 22.9 Intake Visit Reasons: ov- right tib plateau fx xrays Intake Note: Sarah 72 year old female presents today for a follow up of right tibial plateau fracture, 04/22/23. Xrays updated while in office. Patient reports she has completed PT however she needs clearance to squat or be on her knees. States she is doing well and has no pain. Allergies nickel Allergy (Mild, Verified 08/20/23 12:59) Hives HPI ov- right tib plateau fx xrays HPI Details 73-year-old female who returns to the [facility] today for a follow-up of right knee fracture, 04/22/23. She states she has no pain and is doing well overall. She has completed physical therapy which provided her relief. She has no other concerns today. [facility] Medical History Benign carcinoid tumor of sigmoid colon Surgical History H/O bilateral breast implants Social History Patient Tobacco Use Status: Never used Tobacco Current occupational status: unemployed Review of Systems Const All systems reviewed & are unremarkable except as noted in HPI and below Physical Exam Vital Signs: BMI result Body Mass Index 22.9 Const General: cooperative and no acute distress Orientation/consciousness: patient oriented x3 Resp Effort & Inspection: normal respiratory effort and able to speak in complete sentences Cardio Peripheral pulses: Peripheral pulses 2+ throughout Neuro General: patient oriented x3 Extrem Other: Right knee: Normal to inspection. No joint effusion. ROM is 0-110 degrees. Calf supple, nontender. No tenderness over the lateral tibial plateau. Results Reviewed Results Reviewed: Xrays were obtained in the office today and personally reviewed by me of the left knee which show stable fracture pattern Assessment & Plan Assessment & Plan (1) Tibial plateau fracture, left: Comment: error Code(s): S82.142A - Displaced bicondylar fracture of left tibia, initial encounter for closed fracture Qualifiers: Encounter type: subsequent encounter Fracture healing: with routine healing Fracture type: closed Qualified Code(s): S82.142D - Displaced bicondylar fracture of left tibia, subsequent encounter for closed fracture with routine healing Plan She will continue to increase activity as tolerated. She has no restrictions. She will continue to maintain physical therapy exercises and see me back as needed. Orders: Orders XR knee RT 2V Today M25.569 - Pain in unspecified knee Patient Instructions: Scribed for John Cleary PA-C, by Robert Quinones medical claims assistant, on 08/20/2023 at 12:45 PM EST. John Sosa PA-C, have personally reviewed and agree with the information entered by the scribe. Coding Level of Care Code Est Pt Level 3 (51176) Diagnoses Closed fracture of left tibial plateau with routine healing, subsequent encounter S82.142D Encounter type: subsequent encounter Fracture healing: with routine healing Fracture type: closed
[2023-08-20 12:59] VITALS: BMI 22.9
== END 2023-08-20 13:51 | disposition home or self-care (01) ==
PROVIDERS: PCP Internal Medicine; Visit Provider Physician Assistant
DX: S82.142D Displaced bicondylar fracture of left tibia, subsequent encounter for closed fracture with routine healing (principal)
CPT/HCPCS: 99213